=== PATIENT | female | born 1960 | race Caucasian/White ===

== ENCOUNTER 2017-04-23 00:22 | Emergency (ER) | payer BC ==
--- NOTE | 2017-04-23 02:23 | ER Document Report ---
ED General - General Chief Complaint: Abdominal Pain Stated Complaint: WEAKNESS Time Seen by Provider: 04/23/17 01:56 Notes: Patient is a 56-year-old female who presents emergency department with multitude of symptoms but a chief complaint of abdominal discomfort. Patient states that she has a past medical history significant for rheumatoid arthritis , lupus and anemia but she does not take any medications except for Advil as needed. She states that she has had nausea and abdominal discomfort since Sunday. She states that over the previous weekend she had been visiting with family and on Sunday she had sudden onset of epigastric and right upper quadrant pain with associated vomiting. She followed up with her primary care doctor on Sunday who prescribed her Phenergan. Patient states that her symptoms resolved after that. She states this evening she was trying to go to bed when she had sudden onset abdominal discomfort with nausea. She states she also felt a wave of numbness from her face down her throat and into her belly. Patient states that she has had episodes like that in the past where she felt like she cannot move her face, her tongue is too big for her throat, she feels like her throat was closing up and then she has a cramping feeling in her stomach, she states that aside from the abdominal pain though symptoms are not different from her baseline. At this time she denies any facial numbness, weakness, extremity weakness, confusion. TRAVEL OUTSIDE OF THE [place] IN LAST 30 DAYS: No - Related Data Allergies/Adverse Reactions: celecoxib [From Celebrex] Allergy (Verified 04/23/17 00:37) cephalexin [From Keflex] Allergy (Verified 04/23/17 00:37) prednisone Allergy (Verified 04/23/17 00:37) Sulfa (Sulfonamide Antibiotics) Allergy (Verified 04/23/17 00:37) codeine Adverse Reaction (Verified 04/23/17 00:37) contrast dye Allergy (Uncoded 04/23/17 00:37) surgical magali Allergy (Uncoded 04/23/17 00:37) Past Medical History - Social History Smoking Status: Never Smoker Family History: Reviewed & Not Pertinent Review of Systems - Review of Systems Constitutional: No symptoms reported Cardiovascular: No symptoms reported Respiratory: No symptoms reported Gastrointestinal: See HPI Neurological/Psychological: See HPI -: Yes All other systems reviewed and negative Physical Exam - Vital signs Vitals: Temp Pulse Resp BP Pulse Ox 97.4 F 80 18 172/118 H 95 04/23/17 00:26 04/23/17 00:26 04/23/17 00:26 04/23/17 00:26 04/23/17 00:26 - Notes Notes: PHYSICAL EXAM GENERAL: Alert, interacts well. HEAD: Normocephalic, atraumatic. EYES: Pupils equal, round, and reactive to light. Extraocular movements intact. ENT: Oral mucosa moist, tongue midline. NECK: Full range of motion. Supple. Trachea midline. LUNGS: Clear to auscultation bilaterally, no wheezes, rales, or rhonchi. No respiratory distress. HEART: Regular rate and rhythm. No murmurs, gallops, or rubs. ABDOMEN: Soft, nondistended, mild epigastric and right upper quadrant tenderness with positive Agee sign. No guarding, rebound, or rigidity.. Bowel sounds present in all 4 quadrants. EXTREMITIES: Moves all 4 extremities spontaneously. No edema, radial and dorsalis pedis pulses 2/4 bilaterally. No cyanosis. Bilateral hands with evidence of joint swelling and significant boutonniere deformity of bilateral thumbs, ulnar deviation of the MCP joints NEUROLOGICAL: Alert and oriented x4. GCS of 15. Normal speech. Cranial nerves intact without evidence of facial palsy, gaze palsy, tongue deviation. Cerebellar coordination intact without gait ataxia. Pronator drift was negative. Equal radio despatcher. Sensory intact in the extremities. PSYCH: Normal affect, normal mood. SKIN: Warm, dry, normal turgor. No rashes or lesions noted. Course - Re-evaluation Re-evalutation: 04/23/17 03:01 Patient is a 56-year-old female who is hemodynamically stable, no acute distress afebrile. Patient with a GCS score of 15 without any focal neurological deficits. No evidence of white blood cell count elevation. Patient has a history of low white blood cell which she states is normal. No evidence of left shift. Chemistry panel without evidence of acute hepatic injury, acute renal injury. Lipase is normal. Ultrasound ordered for right upper quadrant evaluation. 04/23/17 06:06 Right upper quadrant ultrasound shows gallstones without evidence of cholecystitis, common bile duct stone obstruction. Discussed with patient ability to discuss case with surgeon this morning or she can go home and follow up electively. Patient requesting to be discharged home to follow-up with her lung puller and to pursue cholecystectomy as an elective outpatient procedure. Discussed with patient strict return precautions which she expresses understanding. at the bedside also agrees. Stable for discharge home - Vital Signs Vital signs: Temp Pulse Resp BP Pulse Ox 97.4 F 80 14 167/78 H 98 04/23/17 00:26 04/23/17 00:26 04/23/17 04:01 04/23/17 04:01 04/23/17 04:01 - Laboratory Result Diagrams: 04/23/17 02:25 04/23/17 02:25 Laboratory results interpreted by me: 04/23/17 04/23/17 02:25 02:25 WBC 3.5 L MCV 78 L MCH 26.2 L RDW 16.1 H Glucose 118 H - Diagnostic Test Radiology reviewed: Reports reviewed Discharge - Discharge Clinical Impression: Gall bladder stones Condition: Good Disposition: HOME, SELF-CARE Instructions: Gallbladder Disease ([facility]), Low-Fat Diet ([facility]) Additional Instructions: Please return to the emergency department with any worsening vomiting, pain, fever 100.4 or higher. Otherwise please follow-up with your primary care provider on Sunday. Prescriptions: Metoclopramide HCl [Reglan] 5 mg PO Q4HP PRN #20 tablet PRN Reason: Referrals: FATEMEH MOLINA MD [Primary Care Provider] - Follow up as needed ELIEZER DELGADO MD [ACTIVE STAFF] - Follow up as needed ELVIE HUFF MD [ACTIVE STAFF] - Follow up in 3-5 days
[2017-04-23 02:36] LABS: ABSOLUTE LYMPHOCYTES (AUTO) 0.6 10^3/uL (0.5-4.7); ABSOLUTE MONOCYTES (AUTO) 0.4 10^3/uL (0.1-1.4); ABSOLUTE NEUT (AUTO) 2.5 10^3/uL (1.7-8.2); BASOPHILS % (AUTO) 1.1 % (0-2); EOSINOPHILS % (AUTO) 0.6 % (0-6); HEMATOCRIT 37.6 % (36.0-47.0); HEMOGLOBIN 12.7 g/dL (12.0-15.5); HGB HCT DIFFERENCE 0.5; LYMPHOCYTES % (AUTO) 17.4 % (13-45); MEAN CORPUSCULAR HEMOGLOBIN 26.2 pg (27.0-33.4); MEAN CORPUSCULAR HGB CONC 33.7 g/dL (32.0-36.0); MEAN CORPUSCULAR VOLUME 78 fl (80-97); MONOCYTES % (AUTO) 10.2 % (3-13); RED BLOOD COUNT 4.84 10^6/uL (3.72-5.28); RED CELL DISTRIBUTION WIDTH 16.1 % (11.5-14.0); SEGMENTED NEUTROPHILS % (AUTO) 70.7 % (42-78); WHITE BLOOD COUNT 3.5 10^3/uL (4.0-10.5)
[2017-04-23 02:50] LABS: ALANINE AMINOTRANSFERASE 24 U/L (9-52); ALBUMIN 4.4 g/dL (3.5-5.0); ALKALINE PHOSPHATASE 91 U/L (38-126); ANION GAP 15 (5-19); ASPARTATE AMINO TRANSFERASE 24 U/L (14-36); BILIRUBIN,DIRECT 0.4 mg/dL (0.0-0.4); BILIRUBIN,TOTAL 0.5 mg/dL (0.2-1.3); BLOOD UREA NITROGEN 16 mg/dL (7-20); CALCIUM 9.9 mg/dL (8.4-10.2); CARBON DIOXIDE 29 mmol/L (22-30); CHLORIDE 101 mmol/L (98-107); CREATININE RESULT 0.77 mg/dL (0.52-1.25); GLUCOSE 118 mg/dL (75-110); LIPASE 176.2 U/L (23-300); POTASSIUM 3.9 mmol/L (3.6-5.0); SODIUM 144.5 mmol/L (137-145); TOTAL PROTEIN 8.2 g/dL (6.3-8.2)
[2017-04-23] MEDS ORDERED: MAG HYDROX/AL HYDROX/SIMETH SUSP 30 ML UDCUP PO ONE (03:01)
[2017-04-23] MEDS ORDERED: LIDOCAINE 2% VISCOUS SOLN 20 ML UDCUP PO ONE (03:01)
[2017-04-23] MEDS ORDERED: METOCLOPRAMIDE HCL ORAL SOLN 10 MG/10 ML UDCUP PO ONE (03:01)
[2017-04-23 04:58] VITALS: BP 167/78
--- NOTE | 2017-04-23 05:33 | RADIOLOGY REPORT (SQ) ---
EXAM DESCRIPTION: U/S ABDOMEN LIMITED W/O DOP COMPLETED DATE/TIME: 04/23/2017 4:59 am REASON FOR STUDY: RUQ pain COMPARISON: None. TECHNIQUE: Dynamic and static grayscale images acquired of the abdomen and recorded on PACS. Additio nal selected color Doppler and spectral images recorded. LIMITATIONS: None. FINDINGS: PANCREAS: No masses. Visualized pancreatic duct normal caliber. LIVER: No masses. Echotexture normal. LIVER VASCULATURE: Normal directional flow of the main portal vein and hepatic veins. GALLBLADDER: Gallstone(s). No pericholecystic fluid. Wall thickness is 2.4 mm. ULTRASOUND-DETECTED SAMANO'S SIGN: Negative. INTRAHEPATIC DUCTS AND COMMON DUCT: CBD and intrahepatic ducts normal caliber. No filling defects. INFERIOR VENA CAVA: Normal flow. AORTA: No aneurysm. RIGHT KIDNEY: Normal size. Normal echogenicity. No solid or suspicious masses. No hydronephrosis. No calcifications. PERITONEAL AND RIGHT PLEURAL SPACE: No ascites or effusions. OTHER: No other significant findings. IMPRESSION: No acute findings. Cholelithiasis. TECHNICAL DOCUMENTATION: JOB ID: [id number] 2016 [employer]- All Rights Reserved
--- NOTE | 2017-04-23 06:02 | EKG REPORT ---
SEVERITY:- ABNORMAL ECG - SINUS RHYTHM PROBABLE LEFT ATRIAL ABNORMALITY LEFT VENTRICULAR HYPERTROPHY BORDERLINE PROLONGED QT INTERVAL : Confirmed by: Adrianna Rivera MD 23-Apr-2017 06:00:53
== END 2017-04-23 06:38 | disposition home or self-care (01) ==
LOC: ER 00:22
DX: K80.20 Calculus of gallbladder without cholecystitis without obstruction (principal); R10.9 Unspecified abdominal pain; R53.1 Weakness; M06.9 Rheumatoid arthritis, unspecified
CPT/HCPCS: 99285; 36415; 83690; 85025; 80053; 76705; 93005; 93010; J3490